=== PATIENT | male | born 1970 | race Caucasian/White ===

== ENCOUNTER 2017-05-21 14:18 | Emergency (ER) | payer SELFPAY ==
[~2017-05-21] VITALS: Ht 160 cm; Wt 89.0 kg
[~2017-05-21 14:18] MED LIST: CHOLESTEROL PO; HYDR-3498 PO; IBUP-1542 PO
[2017-05-21 14:25] VITALS: Ht 160 cm; Wt 89.0 kg
== END 2017-05-21 16:25 | disposition left against medical advice (07) ==
LOC: FTE 14:18
DX: Z53.21 Procedure and treatment not carried out due to patient leaving prior to being seen by health care provider (principal)

== ENCOUNTER 2018-03-14 11:49 | Emergency (ER) | END 2018-03-14 15:58 | disposition home or self-care (01) ==

== ENCOUNTER 2018-03-18 18:07 | Emergency (ER) | END 2018-03-18 19:08 | disposition home or self-care (01) ==

== ENCOUNTER 2018-11-18 10:51 | Emergency (ER) | payer OTHER ==
[~2018-11-18] VITALS: Ht 160 cm; Wt 87.0 kg
[~2018-11-18 10:51] MED LIST changes: +CEPH-443 PO; +CLIN300C10 PO; +HYDR-3980 PO
[2018-11-18 10:57] VITALS: BP 146/75; PULSE 76; RESP 18; Ht 160 cm; Wt 87.0 kg
[2018-11-18] MEDS ORDERED: DIPHTH/TET/ACEL PERTUSS (ADULT) 0.5 ML VIAL IM* ONE (12:30)
--- NOTE | 2018-11-18 12:35 | ERD ---
ER Documentation Chief Complaint Chief Complaint RIGHT 4TH FINGER PUNCTURE WOUND HPI This is a 48-year-old male with a nonsignificant past medical history presents ED with puncture wound to right fourth digit. Patient states that he was attempting to remove the wire off of branch earlier today when the wire punctur ed his right fourth digit. Patient admits to some pain along this area. Denies tingling, numbness, lack sensation, decreased range of motion in all other symptoms. No known drug allergies. Unsure when last tetanus was. Patient also has an order for a left hand x-ray from his primary care physician that was ordered due to an injury of the left hand that occurred 1 year ago. Patient is requesting that we do the x-ray here today. ROS All systems reviewed and are negative except as per history of present illness. Medications Home Meds Active Scripts Sulfamethoxazole/Trimethoprim* (Bactrim Ds* Tablet) 1 Each Tablet, 1 TAB PO BID, #14 TAB Prov:JAMI BLISSC 11/18/18 Clindamycin Hcl* (Clindamycin Hcl*) 300 Mg Capsule, 300 MG PO TID for 10 Days, CAP Prov:ARIEL CAREYC 03/18/18 Cephalexin* (Keflex*) 500 Mg Capsule, 500 MG PO QID for 7 Days, CAP Prov:KATE CASASC 03/14/18 Ibuprofen* (Motrin*) 600 Mg Tab, 600 MG PO Q6, #30 TAB Prov:KATE CASASC 03/14/18 Hydrocodone/Acetaminophen (Solsberry 10-325 Tablet) 1 Each Tablet, 1 TAB PO Q6H PRN for PAIN, #7 TAB Prov:KATE CASASC 03/14/18 Ibuprofen* (Ibuprofen*) 600 Mg Tablet, 600 MG PO Q6H PRN for PAIN AND OR ELEVATED TEMP, #30 TAB Prov:GO GUILLERMO NP 05/24/15 Hydrocodone Bit-Acetaminophen* (Solsberry*) 5-325 Mg Tab, 1 TAB PO Q6 PRN for PAIN, #20 TAB Prov:GO GUILLERMO NP 05/24/15 Reported Medications [Cholesterol] No Conflict Check, PO DAILY 03/02/15 Allergies Allergies: Coded Allergies: No Known Allergy (Unverified , 03/02/15) PMhx/Soc History of Surgery: Yes (BACK SURGERY) Anesthesia Reaction: No Hx Neurological Disorder: No Hx Respiratory Disorders: No Hx Cardiac Disorders: No Hx Psychiatric Problems: No Hx Miscellaneous Medical Probl: Yes (dyslipidemia) Hx Alcohol Use: Yes (OCCASIONAL) Hx Substance Use: No Hx Tobacco Use: No Smoking Status: Never smoker FmHx Family History: No diabetes Physical Exam Vitals Vital Signs Date Temp Pulse Resp B/P (MAP) Pulse Ox O2 O2 Flow FiO2 Time Delivery Rate 11/18/18 98.1 76 18 146/75 99 10:57 (98) Physical Exam Physical Exam Vitals signs: Reviewed by me. General: Well developed, well nourished, in no acute distress. Patient is awake and alert. Head: Normocephalic, atraumatic. MSK: No edema, no unilateral swelling, 5/5 strength Upper Extremity -right Skin: Small puncture wound to right medial fourth digit Compartments: Soft Motor: Full active range of motion wrist/hand/fingers Sensation: Intact shoulder/pinky/middle finger/thumb web space Bones: Nontender /forearm/wrist/hand/fingers Snuffbox: Nontender Joints: No effusion Pulses/Perfusion: 2+ radial, Capillary refill < 2 seconds Radial ulnar median nerve tested for sensory motor function without any deficit Neurologic: Alert and oriented, moving all extremities, normal speech, no focal weakness, no cerebellar signs. Normal mentation Skin: warm and dry, No rash Psych: Normal mood Results 24 hrs Current Medications Medications Dose Sig/Rose Start Time Status Last (Trade) Ordered Route PRN Stop Time Admin Dose Reason Admin Diphtheria/ 0.5 ml ONCE ONCE 11/18/18 DC 11/18/18 Tetanus/Acell IM* 12:30 12:32 Pertussis 11/18/18 12:31 (Adacel) Procedures/MDM EKG, MONITORS, & DIAGNOSTIC IMAGING: [place] [address] Radiology Main Line: [phone] DIAGNOSTIC IMAGING REPORT Patient: SILVIA MARKS : 1970 Age: 48 Sex: M MR #: [id number] DOS: 11/18/18 1212 Ordering MD: JAMI BLISS PA-C Location: [facility] Room/Bed: PROCEDURE: XR Finger. CLINICAL INDICATION: Puncture wound, pain TECHNIQUE: Three views of the right fourth digit are available for review. COMPARISON: None available FINDINGS: The osseous structures, articular spaces, and surrounding soft tissues of the right fourth digit are normal. No acute fracture or dislocation is seen. No radiopaque foreign body is identified. IMPRESSION: 1. Unremarkable right fourth digit x-ray series. No evidence of radiodense foreign body. RPTAT: AAQQ .Thuan Butler MD, MD Date Time Electronically viewed and signed by .Thuan Butler MD, on 11/18/2018 14:07 .R/ CC: JAMI BLISS PA-C [id number] [place] [id number] Radiology Main Line: [phone] DIAGNOSTIC IMAGING REPORT Patient: SILVIA MARKS : 1970 Age: 48 Sex: M MR #: [id number] DOS: 11/18/18 1212 Ordering MD: JAMI BLISS PA-C Location: [facility] Room/Bed: PROCEDURE: XR Hand. CLINICAL INDICATION: Injury, pain TECHNIQUE: Three views of the left hand were obtained. COMPARISON: No prior studies are available for comparison. FINDINGS: Small avulsion fracture fragment is seen arising from the dorsal/proximal surface of the fifth finger middle phalanx. No dislocation. Bony mineralization is normal. No radiodense foreign body. IMPRESSION: 1. Small avulsion fracture fragment is seen arising from the dorsal/proximal surface of the fifth finger middle phalanx, as above. RPTAT: AAQQ .Thuan Butler MD, MD Date Time Electronically viewed and signed by .Thuan Butler MD, MD on 11/18/2018 14:07 .R/ CC: JAMI BLISS PA-C [id number] ER COURSE: The patient was stable throughout ED course. I kept the patient and/or family informed of laboratory and diagnostic imaging results throughout the emergency room course. The patient was promptly evaluated and a treatment plan was devised based on H&P and other data. This plan was discussed with the patient who agreed and had no further questions or concerns prior to discharge. MEDICAL DECISION MAKING: This is a 48-year-old male presents ED with puncture wound to right fourth digit. Wound care was provided in the emergency department and there is no laceration to be repaired. Patient was given tetanus. instructions for post care were discussed. No evidence of compartment syndrome, neurologic injury, vascular injury, open joint, tendon laceration, fracture, dislocation, or foreign body of right fourth digit. Patient also has an x-ray order from his primary care physician for x-ray of left hand. Patient states that he sustained an injury to the left hand roughly 10 months ago and continues to have pain. X-ray of the left hand does show a Small avulsion fracture fragment is seen arising from the dorsal/proximal surface of the fifth finger middle phalanx, as above. This is likely an old fracture given patient's history of trauma 10 months ago. Patient was given copies of x-rays and given a finger splint for support and advised to follow-up with lab specialist. Patient's vitals are stable and pt can be managed with close out patient follow up. Advised patient to return to ED or to be seen by primary care for a 48 hour wound check. Return to ED with any worsening symptoms DISPOSITION PLAN: We discussed follow up with the patient's primary care doctor within 24 to 48 hours. Patient counseled regarding my diagnostic impression and care plan. Prior to discharge all questions answered. Pt agrees with treatment plan and understands strict return precautions. Precautionary instructions provided including instructions to return to the ER if not improving or for any worsening or changing symptoms or concerns. SPECIALIST FOLLOW UP RECOMMENDED: ortho Patient has been advised to follow up with primary care in 1-2 days. Disclaimer: Inadvertent spelling and grammatical errors are likely due to EHR/dictation software use and do not reflect on the overall quality of patient care. Also, please note that the electronic time recorded on this note does not necessarily reflect the actual time of the patient encounter. Departure Diagnosis: Primary Impression: Puncture wound Condition: Stable Patient Instructions: Puncture Wound, General, First Aid: Punctures Referrals: [facility] Additional Instructions: Patient advised to return to the ED immediately for new or worsening symptoms. Patient advised to follow up with primary care provider in the next 24-48 hours. Patient verbalized understanding and agrees with treatment plan and course of action. If patient has no primary care they may follow up with one of the community clinics listed on the following page or one of the options listed below [facility] + [facility] [address] [place] [id number] or [facility] [address] [place] [address] or [facility] [address] [place] [address] JAMI BLISS PA-C Nov 18, 2018 12:35
[2018-11-18] MEDS ORDERED: SULF1TAB31 PO (13:25)
== END 2018-11-18 14:48 | disposition home or self-care (01) ==
LOC: FTE 10:51
DX: S61.234A Puncture wound without foreign body of right ring finger without damage to nail, initial encounter (principal); W26.8XXA Contact with other sharp object(s), not elsewhere classified, initial encounter; Y92.9 Unspecified place or not applicable; Z23 Encounter for immunization
CPT/HCPCS: 29130; 73130; 73140; 90471; 90715; Z7502